=== PATIENT | female | born 2000 | race Caucasian/White ===

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

== ENCOUNTER 2019-02-06 16:24 | Emergency (ER) | payer MEDICAID, OTHER ==
[~2019-02-06] VITALS: Ht 160 cm; Wt 72.3 kg
[2019-02-06 16:38] VITALS: BP 122/81
--- NOTE | 2019-02-06 17:02 | NUR ---
GAS APPLIANCE SERVICER: CALLED FOR ROOM, NO ANSWER
--- NOTE | 2019-02-06 17:15 | NUR ---
ANIMAL CARE SERVICE WORKER: CALLED FOR ROOM, NO ANSWER
--- NOTE | 2019-02-06 17:26 | NUR ---
REGISTER OF WILLS: CALLED FOR ROOM, NO ANSWER
== END 2019-02-06 17:27 | disposition left against medical advice (07) ==
LOC: ED 17:21
DX: Z11.3 Encounter for screening for infections with a predominantly sexual mode of transmission (principal); Z53.21 Procedure and treatment not carried out due to patient leaving prior to being seen by health care provider

== ENCOUNTER 2020-03-06 14:58 | Emergency (ER) | payer MEDICAID ==
[~2020-03-06] VITALS: Ht 160 cm; Wt 66.9 kg
[2020-03-06 15:05] VITALS: BP 132/67
--- NOTE | 2020-03-06 15:17 | NUR ---
ERMD AT BEDSIDE FOR EVALUATION.
--- NOTE | 2020-03-06 15:21 | NUR ---
PATIENT WALKED BACK FROM TRIAGE WITH CHIEF C/O RIGHT SIDED TOOTH PAIN AND SWELLING. PATIENT STATES ABOUT 3 MONTHS AGO SHE BROKE A TOOTH ON THE RIGHT SIDE OF HER MOUTH ON HER TONGUE RING. SHE STARTED EXPERIENCING PAIN ABOUT 1 WEEK AGO, BUT WOKE UP THIS MORNING AND THE RIGHT SIDE OF HER FACE WAS SWOLLEN. PATIENT STATES SHE TOOK "2 ANTIBIOTIC PILLS FROM A FRIEND." PATIENT HAS FOLLOW-UP WITH DENTIST NEXT MONTH. JENNIFER, PATIENT HOLDING ICE PACK TO RIGHT SIDE OF FACE, CALL LIGHT WITHIN REACH.
--- NOTE | 2020-03-06 15:47 | NUR ---
Patient given discharge instructions and prescription and they have confirmed that they understand the instructions. Patient ambulatory with steady gait from ED with friend to private vehicle.
== END 2020-03-06 15:48 | disposition home or self-care (01) ==
LOC: ED 15:15
DX: K02.9 Dental caries, unspecified (principal); K08.89 Other specified disorders of teeth and supporting structures; R22.0 Localized swelling, mass and lump, head
CPT/HCPCS: 99283

== ENCOUNTER 2020-11-24 21:51 | Emergency (ER) | payer MEDICAID ==
[~2020-11-24] VITALS: Ht 160 cm; Wt 72.3 kg
[2020-11-24 21:54] VITALS: BP 126/67
--- NOTE | 2020-11-24 22:23 | NUR ---
pt to room from lobby
--- NOTE | 2020-11-24 22:25 | NUR ---
THIS IS A 20F THAT COMES IN FOR VAGINAL BLEEDING SINCE MONDAY, WORSENING TO PASSING TWO CLOTS YESTERDAY. PT REPORTS SEXUAL CONTACT WITHOUT ANY CONTROL. PT STS LMP 10/19/2020, REPORT USING 3-4 PADS/ DAY. PT DENIES PAIN AT THIS TIME
--- NOTE | 2020-11-24 22:44 | NUR ---
URINE SENT TO LAB
[2020-11-24 22:48] LABS: BASOPHILS % (AUTO) 1 % (0-1); EOSINOPHILS % (AUTO) 1 % (1-7); LYMPHOCYTES % (AUTO) 31 % (22-44); MEAN CORPUSCULAR HEMOGLOBIN 31.9 pg (27.0-34.8); MEAN PLATELET VOLUME 10.6 fL (7.4-10.4); MONOCYTES % (AUTO) 6 % (2-9); NEUTROPHILS % (AUTO) 62 % (42-75); PLATELET COUNT 191 x10^3/uL (130-400); RED BLOOD COUNT 4.38 x10^6/uL (3.82-5.3); RED CELL DISTRIBUTION WIDTH 13.4 % (9.6-15.2)
[2020-11-24 22:57] LABS: ALBUMIN 3.5 g/dL (3.4-5.0); ANION GAP 5 mmol/L (5-15); CALCIUM 8.8 mg/dL (8.5-10.1); CHLORIDE 107 mmol/L (98-107); CREATININE 0.92 mg/dL (0.55-1.02)
[2020-11-24 23:20] LABS: MICROSCOPIC AUTO
--- NOTE | 2020-11-25 00:09 | NUR ---
Patient/Caregiver given discharge instructions and they have confirmed that they understand the instructions. Patient ambulatory with steady gait.
== END 2020-11-25 00:20 | disposition home or self-care (01) ==
LOC: ED 21:56
DX: N93.8 Other specified abnormal uterine and vaginal bleeding (principal); F17.210 Nicotine dependence, cigarettes, uncomplicated; F12.10 Cannabis abuse, uncomplicated; R11.2 Nausea with vomiting, unspecified; Z72.9 Problem related to lifestyle, unspecified
CPT/HCPCS: 36415; 80048; 81001; 82040; 84703; 85025; 87086; 99283